=== PATIENT | female | born 1960 | race Caucasian/White ===

== ENCOUNTER 2024-07-15 18:00 | Outpatient (RCR) | payer OTHER, SELFPAY ==
--- NOTE | 2024-05-27 19:21 | HP.PTEVAL ---
Patient's Visit Information Visit Information Visit Information: AMANDA WOODRUFF is a 64 year old F referred to Physical Therapy by Dr. Maddie Garcia MD with a diagnosis of NASIR. Date of Evaluation: 05/27/24 Physical Therapist: Diana Atkinson PT, Cert MDT Visit Plan Frequency: 1x/Week Duration: 2-4 Months Plan: PF THERAPY FOR STRENGTHENING, LENGTHENING/RELAXATION AND ENDURANCE TRAINING. URINARY URGE INCONTINENCE EDUCATION. HEALTHY BLADDER HABIT EDUCATION. TRAINING IN COORDINATION OF PELVIC FLOOR MUSCULATURE WITH HIP AND CORE (TRANSVERSE ABDOMINUS) MUSCULATURE. CORE STRENGTHENING. FRANCHESCA LE ROM, STRETCHING AND STRENGTHENING. TRAINING IN ABDOMINAL CAVITY PRESSURE MGMT WITH ADL'S. Subjective Subjective: Work/Leisure: [employer]. 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 Present symptoms: LACK OF BLADDER CONTROL SOMETIMES THAT DOESN'T SEEM TO HAVE RHYME OR REASON. PATIENT REPORTS SHE CAN'T WALK THE DOG MORE THAN ABOUT 10 MIN BEFORE SHE GETS THE URGE TO URINATE AND THEN LOOSES CONTROL OF HER BLADDER. Present since: YEARS Pain Scale: N/A Is it getting better, worse or staying the same: GETTING WORSE Commenced as a result of: UTI'S Worse: ACTIVITY INCLUDING WALKING THE DOG AND UNEVEN TERRAIN. Better: PATIENT HAS NOT BEEN ABLE TO MAKE IT BETTER. Disturbed sleep: GETTING UP ONCE A NIGHT TO URINATE Previous history/Previous treatment: H/O UTI'S IN THE PAST BUT NONE RECENT. Treatment this episode: NONE Coughing/sneezing/straining: POSITIVE FOR UI How long can you delay the need to urinate: SOMETIMES UNABLE TO HOLD IT ALL ALL OR MAKE IT TO THE BATHROOM AND OTHER TIMES ONE PLUS HOURS. Prolapse (Falling out feeling): NO Frequency of Urination: 5-8 TIMES A DAY. Ability to stop urine flow: YES Ability to initiate urine stream: YES Dyspareunia: N/A Gait: INDEP Bowel Incontinence: NO Unexplained weight loss: NO Imaging: NO PMH/Recent major surgery: LIVER DZ, THYROID DZ. Objective Objective: Sitting/Standing Posture: INCREASED KYPHOSIS. ANTERIOR PELVIC TILT. NO RELEVANT LATERAL SHIFT. Other Observations: INDEP GAIT AND TRANSFERS. FRANCHESCA LE EDEMA - PATIENT REPORTS IT STARTED AFTER HER AND HER PCP DR ROSE IS AWARE AND THINKS IT MIGHT BE RELATED TO HER LIVER. HE PRESCRIBED COMPRESSION STOCKINGS. SHE STATES IT IS GETTING BETTER. SHE IS GOING TO SEE HER LIVER IN [facility]. Sensory deficit: FRANCHESCA LE LIGHT TOUCH SENSATION IS GROSSLY INTACT AND SYMMETRICAL ROM deficit: TIGHT FRANCHESCA LE HIP FLEXORS, FRANCHESCA HIP ROTATORS, FRANCHESCA HS, AND FRANCHESCA CALVES Motor deficit: FRANCHESCA LE'S GROSSLY 5/5 EXCEPT HIPS 4/5. PATIENT COMMUNICATES A GOOD UNDERSTANDING OF HOW TO CONTRACT HER PELVIC FLOOR X 10 SEC. Dural Signs: NEGATIVE FRANCHESCA LE'S. Lumbar mvmt loss: flex - NIL ext - DANAE R SG - DANAE L SG - DANAE PATIENT DENIES PAIN WITH LUMBAR ROM TESTING. Core strength: POOR Palpation: NO ACUTE LOW BACK OR HIP TENDERNESS. FUNCTIONAL SCREEN: Incontinence Impact Questionnaire Score: 3 Urogenital Distress Inventory Score: 3 Goals Goal 1:: DECREASE URINARY LEAKAGE EPISODES TO ONE OR LESS PER DAY Goal Time Frame: 8-12 Weeks Goal 2:: PATIENT WILL SUCCESSFULLY DELAY VOIDING LONG NEEDED WHEN URGENCY OCCURS TO SUCCESSFULLY MAKE IT TO THE BATHROOM. Goal Time Frame: 6-8 Weeks Goal 3:: PATIENT WILL DEMONSTRATE/COMMUNICATE 10 CONSISTENT AND CONSECUTIVE 10 SECOND PELVIC FLOOR MUSCLE CONTRACTIONS TO DEMONSTRATE IMPROVED PELVIC FLOOR ENDURANCE. Goal Time Frame: 4-6 Weeks Goal 4:: DEVELOP HEALTHY FLUID INTAKE HABITS WITH FLUID INTAKE OF ? BODY WEIGHT IN OUNCES PER DAY AND 2/3 BEING WATER. Goal Time Frame: 2-4 Weeks Goal 5:: NORMALIZE VOIDING FREQUENCEY TO EVERY 3-4 HOURS. Goal Time Frame: 4-6 Weeks Goal 6:: PATIENT WILL BE INDEP WITH A HEP/HOME INSTRUCTIONS FOR CONTINUED IMPROVEMENT ONCE FORMAL PHYSICAL THERAPY CONCLUDES. Goal Time Frame: 8-12 Weeks Rehabilitation Potential Physical Therapy Diagnosis: NASIR AND URGE INCONTINENCE WITH CORE AND HIP TIGHTNESS AND WEAKNESS. Rehabilitation Potential: Good Anticipated Interventions Patient/Client Instruction: Educate patient on: Condition, Plan of Care and Risk Factors For the Purpose of:: To improve self management Therapeutic Exercise to Include: Strength training, Postural training, Flexibilty training and Neuromotor development For the Purpose of:: To improve muscle performance and motor function, To increase tolerance to activity/condition/position, To improve ability of physical actions for home/community/work/leisure and To improve self management Text: Thank you for the opportunity to evaluate your patient. For Medicare and Medicare HMO plans, please review the plan of care and approve it. It will need to be FAXED BACK to us at [phone] for Medicare purposes. For Medicare only, by signing this I certify the plan of care. Please let me know if there are questions or concerns regarding this plan of care. Physician Signature: Date:
--- NOTE | 2024-08-07 10:22 | HP.PT.NRP ---
Patient Information Patient Information: AMANDA WOODRUFF was seen in my office for initial evaluation on 05/27/24. The following Plan of Care was established for this patient: POC Established Initial Frequency: 1x/Week Initial Duration: 2-4 Months Anticipated Interventions Patient/Client Instruction: Educate patient on: Condition, Plan of Care and Risk Factors For the Purpose of:: To improve self management Therapeutic Exercise to Include: Strength training, Postural training, Flexibilty training and Neuromotor development For the Purpose of:: To improve muscle performance and motor function, To increase tolerance to activity/condition/position, To improve ability of physical actions for home/community/work/leisure and To improve self management Last Seen Last Seen: This patient was last seen in our office 07/15/24. Pertinent comments regarding their Physical therapy will appear below: It has been my pleasure to see this patient for a total of 7 visits. This patient has not returned to Physical Therapy for more visits and is appropriate to return to MD for further follow-up as needed. Patient apparently called this office and cancelled remaining PT visits stating her doctor told her therapy was no longer necessary. At this point I will be discontinuing this patient from physical therapy. I would be happy to see this patient again in the future if found appropriate by the physician. Thank you! Diana Atkinson, PT, Cert MDT
== END 2024-07-15 19:00 | disposition home or self-care (01) ==
LOC: PT 18:00
PROVIDERS: Referring Provider Urology; Visit Provider Urology
DX: N39.3 Stress incontinence (female) (male) (principal)
CPT/HCPCS: 97162; 97530

== ENCOUNTER → 2025-05-20 | Outpatient (CLI) | payer OTHER, SELFPAY ==
--- NOTE | 2025-05-20 | CYSPIN_PTH ---
PATIENT: AMANDA WOORDUFF LOC: [facility] U#:[id number] AGE/SX: 65/F ROOM: RE05/20/[address]: Dr. Maddie Garcia MD : 1960 BED: DIS: 05/20/2025 SPEC #: [id number] RECD: 05/20/25 16:09 STATUS: MARIANA RELisset #: [id number] SHER: 05/20/25 00:[address]: Maddie Garcia DEPT: CYTOLOGY RECD BY: Evert Guzman ENTERED: 05/21/25 08:26 SP TYPE: CYSPIN FL OTHR DR: Dr. Jose Guadalupe Jin MD Tissues: Urine Procedures: Pap Stain (control) Special Stain Group II Cytospin Fluid HEADER OPERATION: Not noted PRE-OP DIAGNOSIS: Gross hematuria TISSUE SUBMITTED: A- Urine for cytology - voided DIAGNOSIS CYTOLOGY A. Urine, voided (cytospin): - No malignant cells identified. - Red blood cells, acute inflammation, and intracellular bacteria noted. CYTOLOGY STUDY Slides are reviewed. CYTOLOGY GROSS A. Received is 20 ml of [id number] fluid labeled with the patient's name and and designated per the requisition as urine. Submitted for cytology preparation. 05/21/2025 CPT: 14794
[2025-05-20 16:10] LABS: Cytology, Body Fluid / CSF SEE PATHOLOGY REPORT
== END | disposition home or self-care (01) ==
LOC: LABSPEC 16:07
PROVIDERS: PCP Family Medicine; Visit Provider Urology
DX: R31.0 Gross hematuria (principal)
CPT/HCPCS: 88108; 88313

== ENCOUNTER → 2025-06-19 | Outpatient (CLI) | payer OTHER, SELFPAY ==
--- NOTE | 2025-06-19 14:50 | CT_ITS ---
PROCEDURE: CT ABD/PELVIS W/WO CONTRAST 06/19/2025 REASON FOR EXAM: GROSS HEMATURIA TECHNIQUE: Procedure Code: [id number] Modality: CT Procedure: CT ABD/PELVIS W/WO CONTRAST Coronal and Sagittal reconstruction series were provided. CONTRAST: Isovue-300 VOLUME: 100 mL One or more dose reduction techniques were used (e.g., Automated exposure control, adjustment of the mA and/or kV according to patient size, use of iterative reconstruction technique. RADIATION DOSE SUMMARY: DLP: 2660 mGycm COMPARISON: None FINDINGS: Lung bases: Cardiomegaly. Heavy calcifications of the mitral annulus and aortic leaflets. No pericardial effusion. Massive gastroesophageal varices. Hiatal hernia. Liver: Lobulated contour of the liver consistent with underlying liver cirrhosis with markedly enlarged portal vein and numerous varices. Findings are consistent with portal hypertension. Tiny hypodense lesion seen in the tip of the left liver lobe, nonspecific and too small to characterize. No enhancing mass. Gallbladder: Pericholecystic fluid and mild gallbladder wall thickening. No biliary ductal dilatation. Spleen: Markedly enlarged measuring 19 cm. No mass. Pancreas: Atrophic. No mass. No ductal dilatation. Adrenals: Unremarkable. Kidneys: The kidneys enhance symmetrically. There is no focal renal mass. There is a punctate 1 mm stone in the lower pole of the left kidney. There is no stone along the course of either ureter. No hydroureter noted. Delayed images reveal no filling defects in the distal ureters or collecting systems. Bladder: Not fully distended. No stone or filling defect. Reproductive Organs: Normal uterus and adnexa. Bowel: Diverticulosis without active diverticulitis. No obstruction. Appendix: Normal Lymph nodes: None Vasculature: Extensive venous distension with esophageal varices and dilatation of the mesenteric veins and gonadal veins. Mild dilatation of the IVC. Atherosclerosis of the aorta without aneurysm. Peritoneum / Retroperitoneum: No overt ascites. Bones: Tiny nonspecific lucency present in the left of the S2 vertebral body best demonstrated on coronal image 95. No acute fracture. Anterior abdominal wall hernia containing fat CT/CT Abd/Pelvis W/WO Contrast IMPRESSION: Underlying lipid cirrhosis with signs of portal hypertension including splenome margarita and massive gastroesophageal varices. Cardiomegaly with calcifications of the mitral annulus and aortic leaflets. Si gns of right heart failure with engorgement of the infrahepatic IVC. Fluid around the gallbladder and likely related to underlying liver disease. A cute cholecystitis can not be excluded. Tiny punctate 1-2 mm stone in the lower pole of the left kidney without hydrone phrosis. No focal renal mass. No filling defect in the upper urinary tracts. Poor evaluation of the bladder due to underdistention. No distinct filling def ect. Indeterminate lytic lesion involving the left S2 vertebral body for which furth er evaluation with contrast-enhanced MRI is recommended. Reading Location: [id number]
== END | disposition home or self-care (01) ==
LOC: CT 14:50
PROVIDERS: PCP Family Medicine; Referring Provider Urology; Visit Provider Urology
DX: R31.0 Gross hematuria (principal)
CPT/HCPCS: 74178; Q9967